=== PATIENT | female | born 1935 | race Caucasian/White ===

== ENCOUNTER 2017-12-06 10:38 | Outpatient (CLI) | payer MEDICARE, OTHER | END 2017-12-06 10:39 | disposition home or self-care (01) | LOC: BICMAMMO 10:38 → MERGE 10:45 | PROVIDERS: ATTEND Family Medicine | DX: Z12.31 Encounter for screening mammogram for malignant neoplasm of breast (principal) | CPT/HCPCS: 77063; 77067 ==

== ENCOUNTER 2023-02-17 10:44 | Outpatient (CLI) | payer MEDICARE, OTHER | END 2023-02-17 10:45 | disposition home or self-care (01) | LOC: BICMAMMO 10:44 | PROVIDERS: ATTEND Family Medicine | DX: M81.0 Age-related osteoporosis without current pathological fracture (principal) | CPT/HCPCS: 77080 ==